=== PATIENT | male | born 1980 | race Two or more races ===

== ENCOUNTER 2022-12-21 00:09 | Emergency (ER) | payer OTHER ==
[~2022-12-21] VITALS: Ht 167.6 cm; Wt 74.8 kg
--- NOTE | 2022-12-21 00:49 | NUR ---
TO ER BED 12. [id number] UNCONSCIOUS POSS ETOH. PER EMS "BOTTLE CANS NEXT TO HIM". RR EVEN AND NON LABORED. ONLY RESPONDS TO PAIN. CONNECTED TO POX AND HEART MONITOR. VSS. SAFETY PRECAUTIONS IN PLACE.
--- NOTE | 2022-12-21 07:30 | NUR ---
patient awake , no signs and symptoms of distress. [id number] asking for breakfast. ambulatory with steady gait.
--- NOTE | 2022-12-21 08:52 | NUR ---
Patient discharged to home in stable condition. Written and verbal after care instructions given. Patient verbalizes understanding of instruction.
[2022-12-21 08:55] VITALS: BP 129/79
== END 2022-12-21 08:56 | disposition home or self-care (01) ==
LOC: ER 00:12
DX: F10.129 Alcohol abuse with intoxication, unspecified (principal); R51.9 Headache, unspecified; E11.9 Type 2 diabetes mellitus without complications; Y90.9 Presence of alcohol in blood, level not specified
CPT/HCPCS: 70450-TC; 82962-TC

== ENCOUNTER 2024-02-29 21:39 | Emergency (ER) | payer OTHER ==
[~2024-02-29] VITALS: Ht 167.6 cm; Wt 74.4 kg
[2024-03-01 06:17] VITALS: BP 131/77; TEMP 98.1; O2SAT 98
== END 2024-03-01 06:17 | disposition home or self-care (01) ==
LOC: ER 21:49
DX: F10.129 Alcohol abuse with intoxication, unspecified (principal); Y90.9 Presence of alcohol in blood, level not specified
CPT/HCPCS: 82962-TC